=== PATIENT | male | born 1945 | race Caucasian/White ===

== ENCOUNTER 2024-10-16 21:24 | Emergency (ER) | payer OTHER ==
[~2024-10-16] VITALS: Ht 182.9 cm; Wt 88.6 kg
[~2024-10-16 21:24] MED LIST: AML5T PO; ASPI81CH43 PO; ATOR20TA50 PO; CITA10TA5 PO
--- NOTE | 2024-10-16 22:05 | ED.PDOC ---
Karit. trauma (HPI) HPI Comments 79 y.o male presents to the ED via EMS for a chief complaint of right sided upper arm and thigh pain s/p mechanical fall today. Patient reports brining the trash cans inside, tripped and fell onto his right side. Patient is unable to bear weight to right leg due to thigh pain. Patient denies any head injuries, LOC, dizziness, or blood thinner use. Chief Complaint: Fall Injury Time Seen by MD: 21:55 Primary Care Provider: Jose Rafael Reviewed notes: Nurses Notes, Elementary [employer]ocal [employer] Teacher Notes, Medications, Allergies Allergies: Coded Allergies: NO KNOWN ALLERGIES (Unverified , 08/05/16) Home Meds Active Scripts Atorvastatin Calcium (ATORVASTATIN CALCIUM) 20 Mg Tab, 40 MG PO HS, #30 TAB Prov:ANOOP SHEPHERD MD 08/08/16 Aspirin (Asa) 81 Mg Ch, 81 MG PO DAILY, #30 Prov:ANOOP SHEPHERD MD 08/08/16 Amlodipine Besylate (NORVASC TABLET) 5 Mg Tb, 10 MG PO DAILY, #30 Prov:ANOOP SHEPHERD MD 08/08/16 Reported Medications Citalopram Hydrobromide (Citalopram Hydrobromide) 10 Mg Tab, 1 TAB PO DAILY 11/02/22 Information Source: Patient, Emergency Med Personnel Mode of Arrival: EMS Severity: Moderate Timing: Hours Duration: Since onset Location: (R) Arm, (R) Thigh Location of laceration: None Mechanism: Fall Associated signs and symtoms: Other Past Medical History PAST MEDICAL HISTORY: CVA, High Lipids, HTN, TIA Surgical History: Hernia Repair Family History Family History: Unobtainable Social History Smoker: Non-Smoker Alcohol: Denies ETOH Use Drugs: Denies Drug Use Lives In: Home Constitutional: denies: chills, diaphoresis, fatigue, fever, malaise, sweats, weakness, others EENTM: denies: blurred vision, double vision, ear bleeding, ear discharge, ear drainage, ear pain, ear ringing, eye pain, eye redness, hearing loss, mouth pain, mouth swelling, nasal discharge, nose bleeding, nose congestion, nose pain, photophobia, tearing, throat pain, throat swelling, voice changes, others Respiratory: denies: cough, hemoptysis, orthopnea, SOB at rest, shortness of breath, SOB with excertion, stridor, wheezing, others Cardiovascular: denies: chest pain, dizzy spells, diaphoresis, Dyspnea on exertion, edema, irregular heart beat, left arm pain, lightheadedness, palpitations, PND, syncope, others Gastrointestinal: denies: abdomen distended, abdominal pain, blood streaked bowels, constipated, diarrhea, dysphagia, difficulty swallowing, hematemesis, melena, nausea, poor appetite, poor fluid intake, rectal bleeding, rectal pain, vomiting, others Genitourinary: denies: burning, dysuria, flank pain, frequency, hematuria, incontinence, penile discharge, penile sore, pain, testicle pain, testicle swelling, urgency, others Neurological: denies: dizziness, fainting, headache, left sided numbness, left sided weakness, numbness, paresthesia, pre-existing deficit, right sided nu mbness, right sided weakness, seizure, speech problems, tingling, tremors, weakness, others Musculoskeletal: reports: others (right upper arm and thigh pain ); denies: back pain, gout, joint pain, joint swelling, muscle pain, muscle stiffness, neck pain Integumetry: denies: bruises, change in color, change in hair/nails, dryness, laceration, lesions, lumps, rash, wounds, others Allergic/Immunocompromised: denies: Difficulty Healing, Frequent Infections, Hives, Itching, others Endocrine: denies: excessive hunger, excessive sweating, excessive thirst, excessive urination, flushing, intolerance to cold, intolerance to heat, unexplained weight gain, unexplained weight loss, others Psychiatric: denies: anxiety, bipolar disorder, depression, hopeless, panic dis order, schizophrenia, sleepless, suicidal, others All Other Systems: Reviewed and Negative Physical Exam General Appearance: No Apparent Distress, Normal HEENT: Normal ENT Inspection, Pharynx Normal, TMs Normal Neck: Full Range of Motion, Non-Tender, Normal, Normal Inspection Respiratory: Chest Non-Tender, Lungs Clear, No Accessory Muscle Use, No Respiratory Distress, Normal Breath Sounds Cardiovascular: No Edema, No JVD, No Murmur, No Gallop, Normal Peripheral Pulses, Regular Rate/Rhythm Breast Exam: Deferred Gastrointestinal: No Organomegaly, Non Tender, No Pulsatile Mass, Normal Bowel Sounds, Soft Genitalia: Deferred Pelvic: Deferred Rectal: Deferred Extremities: Tender (right sided extermities with movement ), Other (No hip tenderness, no deformities or shortening of the right leg ) Musculoskeletal : Apperance: Normal Neurologic: Alert, consumer advocate II-XII nml as Tested, No Motor Deficits, Normal Affect, Normal Mood, No Sensory Deficits Cerebellar Function: Normal Reflexes: Normal Skin: Dry, Normal Color, Warm Lymphatic: No Adenopathy Was a procedure done? Was a procedure done?: No Differential Diagnosis Multiple Trauma: Fractures, Contusion, Other (sprain, strain, dislocation) X-Ray, Labs, Meds, VS Vital Signs Date Time Temp Pulse Resp B/P (MAP) Pulse Ox O2 Delivery O2 Flow Rate FiO2 10/16/24 21:30 97.6 60 16 123/79 (94) 97 97.6 X-Ray, Labs, Meds, VS Comment Imaging: X-rays and CT scans were reviewed and interpreted by this provider, imaging shows no fractures and no pathological disease. Pending radiology review. Laboratory: Labs reviewed and interpreted by this provider. No significant abnormalities noted. Patient has prior medical visits reviewed. Med reconciliation performed Vital signs reviewed Time of 1ST Reevaluation: 22:05 Reevaluation 1ST: Unchanged Patient Education/Counseling: Diagnosis, Treatment, Prognosis, Need For Follow Up (Follow up in the emergency department in the next 24-48 hours if symptoms worsen. It was advised to follow up with your primary care doctor in the next 3-4 days for further evaluation.) Family Education/Counseling: No Family Present Departure 1 Departure Time of Disposition: 23:58 Impression: Primary Impression: Contusion of right arm Qualified Codes: S40.021A - Contusion of right upper arm, initial encounter Additional Impression: Contusion of right shoulder Qualified Codes: S40.011A - Contusion of right shoulder, initial encounter Disposition: HOME / SELF CARE / HOMELESS Condition: Stable Discharged With: Self Critical Care Note Critical Care Time?: No Stability Stability form required: No I personally scribed for HIREN DENG ([facility]) on 10/16/24 at 22:05. Electronically submitted by Shara Brown ([facility]). HIREN DENG Oct 16, 2024 22:05
--- NOTE | 2024-10-16 23:08 | DVH ---
CLINICAL INDICATION: fall TECHNIQUE: Views of the right humerus, right shoulder, and right hip Comparison: None FINDINGS/IMPRESSION: There is no evidence of acute fracture or dislocation. [id number] degenerative changes of the r ight shoulder joint and right hip joint. Right proximal femur intramedullary alysha and dynamic hip scre w. No radiopaque foreign objects.
--- NOTE | 2024-10-16 23:10 | DVH ---
EXAM: XY R FEMUR XRAY HISTORY: fall COMPARISON: XY R FEMUR XRAY on DOS: 11/01/22 TECHNIQUE: AP and lateral views of the right femur were performed. FINDINGS/IMPRESSION: No acute fracture of the right femur. Intramedullary alysha and dynamic hip screw of the right proximal femur.
[2024-10-17] MEDS ORDERED: IBUP-1455 PO (00:34)
[2024-10-17] MEDS ORDERED: CYCL-837 PO (00:34)
[2024-10-17 01:05] VITALS: BP 123/79; TEMP 98
[2024-10-17 01:06] VITALS: PULSE 60; RESP 16; O2SAT 97
[2024-10-17] MEDS: KETOROLAC TROMETH 30 MG/ML 1ML VIAL IM ONE (01:09)
== END 2024-10-17 00:43 | disposition home or self-care (01) ==
LOC: EDBD 21:24 → ER 21:36
DX: S40.021A Contusion of right upper arm, initial encounter (principal); S40.011A Contusion of right shoulder, initial encounter; E78.5 Hyperlipidemia, unspecified; I10 Essential (primary) hypertension; Z86.73 Personal history of transient ischemic attack (TIA), and cerebral infarction without residual deficits; Z98.890 Other specified postprocedural states; Z79.899 Other long term (current) drug therapy; Z79.82 Long term (current) use of aspirin; W01.0XXA Fall on same level from slipping, tripping and stumbling without subsequent striking against object, initial encounter; Y93.89 Activity, other specified; Y92.89 Other specified places as the place of occurrence of the external cause; Y99.8 Other external cause status
CPT/HCPCS: 73030; 73060; 73502